=== PATIENT | male | born 1960 | race Caucasian/White ===

== ENCOUNTER 2018-09-22 07:53 | Day surgery (SDC) | payer OTHER ==
[2018-09-19 16:40] VITALS: BMI 28.1
[2018-09-22] MEDS ORDERED: MIDAZOLAM HCL 2 MG/2 ML SINGLE DOSE VIAL ONE (08:40)
[2018-09-22] MEDS ORDERED: PROPOFOL 20 ML ONE ×2 (08:41)
[2018-09-22] MEDS ORDERED: oxyCODONE HCL 5 MG TABLET PO PRN (09:10)
[2018-09-22] MEDS ORDERED: ONDANSETRON 4 MG/2 ML VIAL IVPUSH PRN (09:10)
[2018-09-22] MEDS ORDERED: PROMETHAZINE HCL 25 MG/1 ML VIAL IVPUSH PRN (09:10)
[2018-09-22] MEDS ORDERED: LACTATED RINGERS SOLUTION 1,000 ML IV SCH (09:15)
--- NOTE | 2018-09-22 09:15 | OP ---
Operative Note - Note: Operative Date: 09/22/18 Pre-Operative Diagnosis: hematuria/urethral stricture Operation: cystoscopy/urethral dilation with sounds Findings: bulbous urethral stricture dilated with sounds to 26fr Post-Operative Diagnosis: Same as Pre-op Surgeon: Ramone Vasquez Anesthesia: General Operative Report Dictated: Yes
[2018-09-22 10:24] VITALS: TEMP 97.7
--- NOTE | 2018-09-22 10:33 | OP ---
DATE OF OPERATION: 09/22/2018 PREOPERATIVE DIAGNOSES: Hematuria and urethral stricture. POSTOPERATIVE DIAGNOSES: Hematuria and urethral stricture. PROCEDURE: Cystoscopy and urethral dilation with sounds. ATTENDING SURGEON: Philip Vasquez MD ANESTHESIA: General. OPERATION: As follows, the patient has a history of persistent microscopic hematuria. The cystoscopy was attempted in the office setting; however, a bulbous urethral stricture was encountered, and attempts at bypassing the stricture with dilation in the office was unacceptable to the patient due to pain. The patient is brought into the operating room today to receive anesthesia for the procedure. The patient understands all risks and benefits. The patient has persistent microscopic hematuria and benign prostatic hypertrophy. The patient was then placed in the dorsal lithotomy position, prepped and draped in the usual sterile manner after anesthesia and preoperative antibiotics consisting of Levaquin are administered. Cystoscopy was performed, and a bulbous urethral stricture was encountered. Dilation was performed with the urethral sounds to 26-[place]ian. At this point, cystoscopy is performed, and a 3+ obstructive prostate is noted, and 1 to 2+ bladder trabeculation is observed. The bilateral ureteral orifices are within normal limits. One to 2+ bladder trabeculation is noted. The patient had his bladder emptied at the end of the case. No catheter was left in place. The patient tolerated the procedure very well. PHILIP FELIPE M.D. /[id number]
[2018-09-22 10:47] VITALS: BP 127/67; PULSE 81
== END 2018-09-22 11:13 | disposition home or self-care (01) ==
LOC: JASU-SURG 07:53
PROVIDERS: ATTEND Urology
PROC: 0T7D8ZZ Dilation of Urethra, Via Natural or Artificial Opening Endoscopic (ICD-10-PCS; principal; 2018-09-22 09:00)
DX: N35.812 Other bulbous urethral stricture, male (principal); R31.9 Hematuria, unspecified; N40.0 Benign prostatic hyperplasia without lower urinary tract symptoms
CPT/HCPCS: 94760

== ENCOUNTER 2021-06-19 04:56 | Day surgery (SDC) | payer OTHER ==
[2021-06-15 12:15] VITALS: BMI 25.2
[2021-06-19] MEDS ORDERED: ONDANSETRON 4 MG/2 ML VIAL IVPUSH PRN (15:30)
[2021-06-19] MEDS ORDERED: LACTATED RINGERS SOLUTION 1,000 ML IV SCH (15:30)
[2021-06-19] MEDS ORDERED: oxyCODONE HCL 5 MG TABLET PO PRN (15:30)
[2021-06-19] MEDS ORDERED: PROMETHAZINE HCL 25 MG/1 ML VIAL IVPUSH PRN (15:30)
[2021-06-19] MEDS ORDERED: PROPOFOL 20 ML ONE (15:39)
[2021-06-19] MEDS ORDERED: MIDAZOLAM HCL 2 MG/2 ML SINGLE DOSE VIAL ONE (15:39)
[2021-06-19] MEDS ORDERED: LIDOCAINE HCL/PF 2% SDV 5ML VIAL ONE (15:52)
[2021-06-19] MEDS ORDERED: GLYCOPYRROLATE 0.2 MG/1 ML VIAL ONE (15:52)
[2021-06-19] MEDS ORDERED: DEXAMETHASONE SOD PHOSPHATE 4 MG/1 ML VIAL ONE (15:52)
[2021-06-19 17:16] VITALS: BP 127/83; PULSE 81; TEMP 97.7
== END 2021-06-19 17:28 | disposition home or self-care (01) ==
LOC: JASU-SURG 04:56
PROVIDERS: ATTEND Urology
PROC: 0TND8ZZ Release Urethra, Via Natural or Artificial Opening Endoscopic (ICD-10-PCS; principal; 2021-06-19 13:30)
DX: N35.819 Other urethral stricture, male, unspecified site (principal); R31.9 Hematuria, unspecified
CPT/HCPCS: 94760